=== PATIENT | female | born 1995 | race African-American/Black ===

== ENCOUNTER 2018-11-02 00:29 | Emergency (ER) | payer OTHER ==
[~2018-11-02] VITALS: Ht 170.2 cm; Wt 77.1 kg
[2018-11-02 00:42] LABS: ABSOLUTE NEUTROPHILS 7.6 thou/uL (1.4-8.2); BASOPHILS 0.2 % (0.0-2.0); EOSINOPHILS 0.1 % (0.0-3.0); HEMATOCRIT 36.3 % (37.0-47.0); HEMOGLOBIN 12.2 gm/dL (12.0-15.0); MCH 27.6 pg (26.0-34.0); MCHC 33.6 g/dL (28.0-37.0); MCV 82.1 fL (80.0-100.0); MONOCYTES 7.4 % (1.0-8.0); PLATELET COUNT 231 thou/uL (150-400); POLYS 74.3 % (36.0-66.0); RBC 4.42 mil/uL (4.20-5.00); WBC 10.3 thou/uL (4.0-11.0)
[2018-11-02 00:49] LABS: CALCIUM 9.4 mg/dL (8.5-10.1); CREATININE 0.7 mg/dL (0.6-1.0); POTASSIUM 3.2 mmol/L (3.5-5.1)
[2018-11-02 01:14] LABS: URINE BILIRUBIN NEGATIVE (Negative); URINE BLOOD NEGATIVE (Negative); URINE CLARITY CLEAR; URINE COLOR YELLOW; URINE GLUCOSE-RANDOM* NEGATIVE (Negative); URINE KETONES 1+ (Negative); URINE LEUKOCYTES-REFLEX TRACE (Negative); URINE NITRITE-REFLEX NEGATIVE (Negative); URINE PROTEIN (DIPSTICK) TRACE (Negative); URINE SPECIFIC GRAVITY >= 1.030 (1.005-1.035); URINE UROBILINOGEN 0.2 E.U./dl (0.2-1.0)
[2018-11-02 02:38] VITALS: BP 136/54
== END 2018-11-02 02:41 | disposition left against medical advice (07) ==
LOC: ER 00:29
PROVIDERS: Student in an Organized Health Care Education/Training Program
DX: O26.892 Other specified pregnancy related conditions, second trimester (principal); R10.30 Lower abdominal pain, unspecified; Z3A.14 14 weeks gestation of pregnancy

== ENCOUNTER 2021-05-24 12:11 | Emergency (ER) | payer OTHER ==
[~2021-05-24] VITALS: Ht 162.6 cm; Wt 81.7 kg
[2021-05-24 13:02] LABS: URINE BILIRUBIN NEGATIVE (Negative); URINE BLOOD 1+ (Negative); URINE CLARITY CLEAR; URINE COLOR YELLOW; URINE GLUCOSE-RANDOM* NEGATIVE (Negative); URINE KETONES NEGATIVE (Negative); URINE LEUKOCYTES-REFLEX TRACE (Negative); URINE NITRITE-REFLEX NEGATIVE (Negative); URINE PROTEIN (DIPSTICK) NEGATIVE (Negative); URINE SPECIFIC GRAVITY 1.015 (1.005-1.035); URINE UROBILINOGEN 0.2 E.U./dl (0.2-1.0)
[2021-05-24 13:16] LABS: SQUAMOUS 0-3 Few /LPF (0-3)
[2021-05-24 13:17] LABS: BACTERIA-REFLEX 1-9 Few /HPF (None Seen); CASTS None Seen /LPF (None Seen); CRYSTALS None Seen /LPF (None Seen); URINE RBC 1-2 Rare /HPF (NONE SEEN); URINE WBC-REFLEX None Seen /HPF (0-5)
[2021-05-24 13:56] LABS: CALCIUM 9.1 mg/dL (8.5-10.1); CREATININE 0.8 mg/dL (0.6-1.0); POTASSIUM 3.6 mmol/L (3.5-5.1)
[2021-05-24 14:45] VITALS: BP 127/74
--- NOTE | 2021-05-24 15:16 | EKG ---
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 : 1995 Requested By: Ty Heaton Order Number: [id number] MD: Myron Almaraz Measurements Intervals [place] Rate: 100 P: 55 IA: 171 QRS: -1 QRSD: 87 T: 32 QT: 342 QTc: 442 Interpretive Statements Sinus tachycardia LAE, consider biatrial enlargement Probable left ventricular hypertrophy No previous ECG available for comparison Electronically Signed On 05-24-2021 15:15:52 CDT by Myron Almaraz [email or web address] <ELECTRONICALLY SIGNED> By: Myron Almaraz MD, [facility] 05/24/21 1515 1219 1219 Myron Almaraz MD, FACC /EPI
== END 2021-05-24 14:45 | disposition home or self-care (01) ==
LOC: ER 12:11
PROVIDERS: Nurse Practitioner
DX: R07.89 Other chest pain (principal); Z20.822 Contact with and (suspected) exposure to COVID-19

== ENCOUNTER 2021-10-28 10:10 | Emergency (ER) | payer OTHER ==
[~2021-10-28] VITALS: Ht 162.6 cm; Wt 81.7 kg
[2021-10-28 10:12] VITALS: BP 156/89
[2021-10-28 11:12] LABS: ABSOLUTE NEUTROPHILS 3.6 thou/uL (1.4-8.2); BASOPHILS 0.4 % (0.0-2.0); EOSINOPHILS 1.1 % (0.0-3.0); HEMATOCRIT 37.6 % (37.0-47.0); HEMOGLOBIN 12.4 gm/dL (12.0-15.0); LYMPHOCYTES 37.6 % (24.0-44.0); MCH 27.8 pg (26.0-34.0); MCHC 33.1 g/dL (28.0-37.0); MONOCYTES 7.3 % (1.0-8.0); PLATELET COUNT 225 thou/uL (150-400); POLYS 53.6 % (36.0-66.0); RBC 4.47 mil/uL (4.20-5.00); RDW 14.7 % (10.5-14.5); WBC 6.6 thou/uL (4.0-11.0)
[2021-10-28 11:31] LABS: CALCIUM 9.2 mg/dL (8.5-10.1); CREATININE 0.7 mg/dL (0.6-1.0); POTASSIUM 3.8 mmol/L (3.5-5.1)
[2021-10-28] MEDS ORDERED: PROAIR HFA8.5 GM INH (11:44)
--- NOTE | 2021-10-29 09:56 | EKG ---
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 : 1995 Requested By: Sukhi Ram Order Number: [id number] MD: Myron Almaraz Measurements Intervals [place] Rate: 96 P: 59 IL: 163 QRS: 3 QRSD: 87 T: 34 QT: 331 QTc: 419 Interpretive Statements Sinus rhythm Left atrial enlargement Low voltage, precordial leads Probable left ventricular hypertrophy Baseline wander in lead(s) II Compared to ECG 05/24/2021 12:19:38 Low QRS voltage now present Sinus tachycardia no longer present Electronically Signed On 10-29-2021 9:56:28 LACQUER SHADER by Myron Almaraz [email or web address] <ELECTRONICALLY SIGNED> By: Myron Almaraz MD, [facility] 10/29/21 0956 1019 1019 Myron Almaraz MD, [facility] /EPI
== END 2021-10-28 11:53 | disposition home or self-care (01) ==
LOC: ER 10:10
PROVIDERS: Emergency Medicine
DX: R06.00 Dyspnea, unspecified (principal); Z20.822 Contact with and (suspected) exposure to COVID-19